=== PATIENT | male | born 1975 | race Two or more races ===

== ENCOUNTER 2018-10-10 00:28 | Emergency (ER) | payer SELFPAY ==
[~2018-10-10] VITALS: Ht 177.8 cm; Wt 77.1 kg
[2018-10-10 00:54] VITALS: BP 116/80
[2018-10-10] MEDS ORDERED: Sodium Chloride 500ML 500 ML IV ONE (01:10)
[2018-10-10] MEDS ORDERED: Isovue-300 100ml vial INJ PRN (01:15)
--- NOTE | 2018-10-10 01:30 | NUR ---
ED Nurse Note: Patient left ED without being seen by Primary RN.
--- NOTE | 2018-10-10 06:55 | Emergency Room Report ---
History of Present Illness General Chief Complaint: Abdominal Pain Source: Patient Present Illness Allergies: Coded Allergies: No Known Allergies (Unverified , 10/10/18) Nursing Documentation-[facility] Past Medical History: No History, Except For Hx Gastrointestinal Problems: Yes - hernia 2008 Physical Exam Vital Signs Date Time Temp Pulse Resp B/P (MAP) Pulse Ox O2 Delivery O2 Flow Rate FiO2 10/10/18 00:54 98.4 108 16 116/80 96 Room Air Medical Decision Making Diagnostic Impression: Primary Impression: Patient left without being seen ER Course patient left without being seen Last Vital Signs Date Time Temp Pulse Resp B/P (MAP) Pulse Ox O2 Delivery O2 Flow Rate FiO2 10/10/18 00:54 98.4 108 16 116/80 96 Room Air Status: unchanged Disposition: LEFT W/OUT BEING SEEN Condition: Stable Scripts No Active Prescriptions or Reported Meds Referrals: NOT CHOSEN IPA/,REFERRING (PCP) Tomasz Cates MD Oct 10, 2018 06:55
== END 2018-10-10 01:30 | disposition left against medical advice (07) ==
LOC: EDBD 00:28 → EMR 01:14
DX: Z53.21 Procedure and treatment not carried out due to patient leaving prior to being seen by health care provider (principal)